=== PATIENT | male | born 1985 | race Caucasian/White ===

== ENCOUNTER 2020-05-04 05:50 | Emergency (ER) | payer MEDICAID ==
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
[2020-05-04] MEDS ORDERED: diphenhydrAMINE 50 MG/ML SDV ONE (11:10)
[2020-05-04] MEDS ORDERED: Haloperidol Lactate 5 MG/ML SDV ONE (11:11)
[2020-05-04] MEDS ORDERED: LORazepam 2 MG/ML SDV ONE (11:11)
[2020-05-08] MEDS ORDERED: LORazepam 2 MG/ML SDV IVPUSH ONE (10:59)
[2020-05-08] MEDS ORDERED: diphenhydrAMINE 50 MG/ML SDV IVPUSH ONE (10:59)
[2020-05-08] MEDS ORDERED: Haloperidol Lactate 5 MG/ML SDV IVPUSH ONE (10:59)
== END 2020-05-04 12:15 ==
LOC: LB.ED 05:50
DX: F32.9 Major depressive disorder, single episode, unspecified (principal); F12.10 Cannabis abuse, uncomplicated; R51 Headache; R10.30 Lower abdominal pain, unspecified; G89.29 Other chronic pain; F17.210 Nicotine dependence, cigarettes, uncomplicated; Z20.828 Contact with and (suspected) exposure to other viral communicable diseases
CPT/HCPCS: 36415; 80048; 80307; 84443; 85025; 96374; 96375; 99285; 99285-25; U0002

== ENCOUNTER 2025-06-29 23:13 | Emergency (ER) | payer BC, MEDICAID, OTHER ==
[2025-06-29] MEDS: Tetracaine HCl/PF 0.5% 4 ML Bottle EYELF ONE (23:20)
[2025-06-29] MEDS ORDERED: Ciprofloxacin 0.3% Ophth Soln 2.5 ML Bottle ONE (23:40)
== END 2025-06-29 23:45 | disposition home or self-care (01) ==
LOC: LB.ED 23:13
DX: S05.02XA Injury of conjunctiva and corneal abrasion without foreign body, left eye, initial encounter (principal); Z79.899 Other long term (current) drug therapy; W20.8XXA Other cause of strike by thrown, projected or falling object, initial encounter
CPT/HCPCS: 65220; 99283-25; A9270-GY